=== PATIENT | male | born 1945 | race Caucasian/White ===

== ENCOUNTER 2021-11-29 05:07 | Emergency (ER) | payer OTHER, MEDICARE ==
[~2021-11-29] VITALS: Ht 177.8 cm; Wt 97.1 kg
[2021-11-29 05:20] VITALS: BP_SYST 117
--- NOTE | 2021-11-29 05:20 | NUR ---
Placed in room 8 . Placed on obstetrics nurse, blood pressure machine and pulse oximeter. To gown for exam. Side rails up. Report given to Ernesto RAI.
--- NOTE | 2021-11-29 05:30 | NUR ---
assumed pt care. Came in for flu-like symptoms and avulsion on left thumb. Pt is calm and cooperative in no acute distress. VS stable, complaints of headache and malaise. Will continue to monitor.
[2021-11-29 06:29] LABS: BASOPHILS % (AUTO) 0.7 % (0.0-2.0); EOSINOPHILS # (AUTO) 0.1 K/uL (0.0-0.4); EOSINOPHILS % (AUTO) 1.2 % (0.0-4.0); HEMATOCRIT 40.9 % (36-54); HEMOGLOBIN 13.9 g/dL (14.0-18.0); LYMPHOCYTES # (AUTO) 0.5 K/uL (1.0-5.5); LYMPHOCYTES % (AUTO) 8.3 % (20.5-51.5); MEAN CORPUSCULAR HEMOGLOBIN 31 pg (27-31); MEAN CORPUSCULAR HGB CONC 34 % (32-36); MEAN CORPUSCULAR VOLUME 92 fL (79.0-98.0); MONOCYTES # (AUTO) 0.8 K/uL (0.0-1.0); MONOCYTES % (AUTO) 13.7 % (1.7-9.3); NEUTROPHILS # (AUTO) 4.4 K/uL (1.8-7.7); NEUTROPHILS % (AUTO) 76.1 % (40.0-70.0); PLATELET COUNT (AUTO) 153 K/uL (130-430); RED BLOOD CELL COUNT(AUTO) 4.43 MIL/uL (4.2-6.2); RED CELL DISTRIBUTION WIDTH 13.6 % (9.0-15.0); WHITE BLOOD COUNT (AUTO) 5.8 K/uL (4.8-10.8)
[2021-11-29 06:30] LABS: BILIRUBIN,URINE NEGATIVE (NEGATIVE); BLOOD, URINE 3+ (NEGATIVE); CLARITY/URINE CLEAR (CLEAR); COLOR,URINE YELLOW (YELLOW); GLUCOSE,URINE 3+ (NEGATIVE); KETONES,URINE NEGATIVE (NEGATIVE); LEUKOCYTE ESTERASE ,URINE NEGATIVE (NEGATIVE); NITRITE, URINE POSITIVE (NEGATIVE); PH,URINE 5.5 (5.0-8.0); PROTEIN URINE NEGATIVE (NEGATIVE); UROBILINOGEN,URINE 0.2 (0.2-1.0)
[2021-11-29 06:40] LABS: ANION GAP 11 (5-15); CALCIUM 8.2 mg/dL (8.4-11.0); CHLORIDE 103 mmol/L (98-107); CREATININE 1.02 mg/dL (0.55-1.30); GLUCOSE 160 mg/dL (70-99); POTASSIUM 3.7 mmol/L (3.5-5.1); SODIUM SERUM 135 mmol/L (136-145); UREA NITROGEN, BLOOD 18 mg/dL (8-21)
[2021-11-29 06:48] LABS: ALANINE AMINOTRANSFERASE 25 U/L (12-78); ALBUMIN 3.6 g/dL (3.4-4.8); ASPARTATE AMINOTRANSFERASE 26 U/L (10-37); TOTAL BILIRUBIN 0.6 mg/dL (0.0-1.0)
[2021-11-29] MEDS ORDERED: BACITRACIN 1 GM OINT TP ONE (07:00)
[2021-11-29 07:04] LABS: BACTERIA,URINE RARE /HPF (None Seen); MUCUS,URINE 1+ /LPF (None Seen)
--- NOTE | 2021-11-29 07:15 | NUR ---
Pt still resting comfortably in bed with at bedside. Report given to oncoming nurse and care relieved.
--- NOTE | 2021-11-29 07:19 | NUR ---
report received from evan caro. all cares transferred at this time.
[2021-11-29] MEDS ORDERED: NIRM1TAB PO (08:04)
[2021-11-29] MEDS ORDERED: IBUP-1971 PO (08:04)
[2021-11-29] MEDS ORDERED: NITR-85 PO (08:08)
--- NOTE | 2021-11-29 08:28 | NUR ---
Patient given written and verbal discharge instructions and verbalizes understanding. ER MD discussed with patient the results and treatment provided. Patient in stable condition. ID arm band removed. IV catheter removed intact and dressing applied, no active bleeding. Rx of augmentin, paxlovid, motrin, macrobid given. Patient educated on pain management and to follow up with PMD. Pain Scale 0. Opportunity for questions provided and answered. Medication side effect fact sheet provided.
[2021-11-29 08:31] VITALS: BP_SYST 115
== END 2021-11-29 08:31 | disposition home or self-care (01) ==
LOC: SED 05:07
DX: U07.1 COVID-19 (principal); J40 Bronchitis, not specified as acute or chronic; S61.002A Unspecified open wound of left thumb without damage to nail, initial encounter; I10 Essential (primary) hypertension; X58.XXXA Exposure to other specified factors, initial encounter; Y93.89 Activity, other specified; Y92.89 Other specified places as the place of occurrence of the external cause; Y99.8 Other external cause status
CPT/HCPCS: 36415; 71045; 80053; 81000; 83605; 84484; 85025; 87040; 87086; 93005; 99284